=== PATIENT | male | born 1955 | race African-American/Black ===

== ENCOUNTER 2018-01-20 06:47 | Emergency (ER) | payer OTHER ==
[2018-01-20] MEDS ORDERED: IPRATROPIUM/ALBUTEROL 0.5-2.5 MG/3 ML AMPUL NEB ONE (07:26)
--- NOTE | 2018-01-20 07:31 | ER Document Report ---
ED Respiratory Problem - General Chief Complaint: Cough Stated Complaint: COLD SYMPTOMS Time Seen by Provider: 01/20/18 07:08 Mode of Arrival: Ambulatory Information source: Patient Notes: 62-year-old smoker has had persistent course mucousy cough for 3 weeks. No hemoptysis. He saw early Joe and was given antibiotics and other shots and went to [place] but he is now returned to [place] with a cough. His states she wants him to be seen and rechecked. No fever. History of hypertension and asthma. He has a metered-dose inhaler but is not using it. Denies chest pain or shortness of breath. - Related Data Allergies/Adverse Reactions: No Known Allergies Allergy (Verified 01/20/18 07:25) Past Medical History - General Information source: Patient - Social History Smoking Status: Current Every Day Smoker Frequency of alcohol use: None Drug Abuse: None Lives with: Family Family History: Reviewed & Not Pertinent Review of Systems - Review of Systems Constitutional: No symptoms reported EENT: See HPI Cardiovascular: No symptoms reported Respiratory: See HPI Gastrointestinal: No symptoms reported Genitourinary: No symptoms reported Male Genitourinary: No symptoms reported Musculoskeletal: No symptoms reported Skin: No symptoms reported Hematologic/Lymphatic: No symptoms reported Neurological/Psychological: No symptoms reported Physical Exam - Vital signs Vitals: Temp Pulse Resp BP Pulse Ox 97.9 F 65 18 130/82 H 99 01/20/18 06:55 01/20/18 06:55 01/20/18 06:55 01/20/18 06:55 01/20/18 06:55 Interpretation: Normal - General General appearance: Appears well, Alert - HEENT Head: Normocephalic, Atraumatic Eyes: Normal Conjunctiva: Normal Pupils: PERRL Tympanic membrane: Normal Nasal: Clear rhinorrhea Mouth/Lips: Normal Mucous membranes: Normal Neck: Supple. No: Lymphadenopathy - Respiratory Respiratory status: No respiratory distress Chest status: Nontender Breath sounds: Productive cough - mucousy Chest palpation: Normal - Cardiovascular Rhythm: Regular Heart sounds: Normal auscultation Murmur: No - Abdominal Inspection: Normal Distension: No distension Bowel sounds: Normal Tenderness: Nontender. No: Tender Organomegaly: No organomegaly - Back Back: Normal, Nontender - Extremities General upper extremity: Normal inspection, Nontender, Normal color, Normal ROM , Normal temperature General lower extremity: Normal inspection, Nontender, Normal color, Normal ROM , Normal temperature, Normal weight bearing. No: Lulú's sign - Neurological Neuro grossly intact: Yes Cognition: Normal Orientation: AAOx4 Jossy Coma Scale Eye Opening: Spontaneous Jossy Coma Scale Verbal: Oriented [place] Coma Scale Motor: Obeys Commands [place] Coma Scale Total: 15 Speech: Normal Motor strength normal: LUE, RUE, LLE, RLE Sensory: Normal - Psychological Associated symptoms: Normal affect, Normal mood - Skin Skin Temperature: Warm Skin Moisture: Dry Skin Color: Normal Skin irregularity: negative: Rash Course - Re-evaluation Re-evalutation: 01/20/18 09:11 Chest x-ray is negative but I spoke to the patient at length that if he continues with his chronic cough he has not had to see a turbine assembler for a bronchoscopy to evaluate his upper airway. Encouraged him to quit smoking and use the albuterol, prednisone, Tessalon Perles for the cough. - Vital Signs Vital signs: Temp Pulse Resp BP Pulse Ox 97.9 F 65 18 130/82 H 99 01/20/18 06:55 01/20/18 06:55 01/20/18 06:55 01/20/18 06:55 01/20/18 06:55 Discharge - Discharge Clinical Impression: Cough, Bronchitis Condition: Good Disposition: HOME, SELF-CARE Instructions: Stop Smoking ([facility]), Bronchitis ([facility]), Inhaled Bronchodilators ( [facility]), Steroid Medication Additional Instructions: Stop smoking See your doctor for follow-up because of this cost persists he may need a pulmonology referral Chest x-ray is negative Use the albuterol metered-dose inhaler 2 puffs every 3-4 hours for this cough Prednisone for a few days Return to the emergency room for any chest pain shortness of breath fever chills coughing up blood Prescriptions: Albuterol Sulfate [Proair HFA Inhalation Aerosol 8.5 gm MDI] 2 puff IH Q3HP PRN #1 hfa.aer.ad PRN Reason: Benzonatate [Tessalon Perles 100 mg Capsule] 100 mg PO ASDIR PRN #40 capsule PRN Reason: Prednisone [Deltasone 10 mg Tablet] 10 mg PO ASDIR PRN #21 tablet PRN Reason: Referrals: JAI HICKS MD [Primary Care Provider] - Follow up as needed PADMINI MONSALVE MD [ACTIVE STAFF] - Follow up as needed
--- NOTE | 2018-01-20 08:24 | RADIOLOGY REPORT (SQ) ---
EXAM DESCRIPTION: CHEST 2 VIEWS COMPLETED DATE/TIME: 01/20/2018 8:14 am REASON FOR STUDY: cough for 3 weeks COMPARISON: 10/06/2009 EXAM PARAMETERS: NUMBER OF VIEWS: two views TECHNIQUE: Digital Frontal and Lateral radiographic views of the chest acquired. RADIATION DOSE: NA LIMITATIONS: none FINDINGS: LUNGS AND PLEURA: Underlying emphysema with stable areas of scarring. No new opacities, m asses or pneumothorax. No pleural effusion. MEDIASTINUM AND HILAR STRUCTURES: No masses or contour abnormalities. HEART AND VASCULAR STRUCTURES: Heart normal size. No evidence for failure. BONES: No acute findings. HARDWARE: None in the chest. OTHER: No other significant finding. IMPRESSION: NO ACUTE RADIOGRAPHIC FINDING IN THE CHEST. NO SIGNIFICANT CHANGE FROM PRIOR STUDY. TECHNICAL DOCUMENTATION: JOB ID: [id number] [employer]- All Rights Reserved Reading location - IP/workstation name: [email or web address]
[2018-01-20 09:18] VITALS: BP 117/66
== END 2018-01-20 09:17 | disposition home or self-care (01) ==
LOC: ER 06:47
DX: J45.909 Unspecified asthma, uncomplicated (principal); R05 Cough; I10 Essential (primary) hypertension; J34.89 Other specified disorders of nose and nasal sinuses; F17.200 Nicotine dependence, unspecified, uncomplicated
CPT/HCPCS: 94640; 99283; 71046; J7620

== ENCOUNTER 2019-05-14 03:53 | Emergency (ER) | payer OTHER ==
--- NOTE | 2019-05-14 04:37 | ER Document Report ---
ED General - General Chief Complaint: Congestion Stated Complaint: SORE THROAT,CONGESTION Time Seen by Provider: 05/14/19 04:36 Primary Care Provider: JAI HICKS MD [ACTIVE STAFF] - Follow up as needed Mode of Arrival: Ambulatory Information source: Patient Notes: HISTORY OF PRESENT ILLNESS: Patient is a 64-year-old male with a past medical history of smoking and hypertension who presents with 2 days of progressively worsening congestion with nonproductive cough and sore throat. Patient denies fevers, no known sick contacts. He states that he is "cutting back on the smoking," and denies chest pain or swelling of the extremities. Location: Chest Onset: 2 days ago Provocation: None Quality: Congestion Radiation: None Severity: Mild Timing: Constant Known sick contacts: Unknown Associated symptoms: Has fevers or chills, no chest pain, no swelling of the extremities Home treatment: Robitussin REVIEW OF SYSTEMS: CONSTITUTIONAL : Denies fever or chills, no sweats. Denies recent illness. EENT: Denies eye, ear, throat, or mouth pain or symptoms. Positive for sinus congestion. CARDIOVASCULAR: Denies chest pain. RESPIRATORY: Positive for cough and chest congestion. Denies shortness of breath, difficulty breathing, or wheezing. GASTROINTESTINAL: Denies abdominal pain. Denies nausea, vomiting, or diarrhea. Denies constipation. GENITOURINARY: Denies difficulty urinating, painful urination, burning, frequency, or blood in urine. MUSCULOSKELETAL: Denies body aches. Denies neck or back pain or joint pain or swelling. SKIN: Denies rash or skin lesions. HEMATOLOGIC : Denies easy bruising or bleeding. LYMPHATIC: Denies swollen, enlarged glands. NEUROLOGICAL: Denies altered mental status or loss of consciousness. Denies headache. Denies weakness or paralysis or loss of use of either side. Denies problems with gait or speech. Denies sensory or motor loss. PSYCHIATRIC: Denies anxiety or stress or depression. All other systems reviewed and negative. PHYSICAL EXAMINATION: GENERAL: Well-appearing, well-nourished and in no acute distress. HEAD: Atraumatic, normocephalic. No scalp deformity, depression, or crepitance. EYES: Pupils are 3 mm and equal/round/reactive to light, extraocular movements intact, sclera anicteric, conjunctiva are normal. ENT: Nares patent bilaterally, oropharynx clear without exudates or palatal petechia. Moist mucous membranes. No tonsil hypertrophy. NECK: Normal range of motion, supple without lymphadenopathy. LUNGS: Breath sounds present, equal, and clear to auscultation bilaterally. No wheezes, rales, or rhonchi. HEART: Regular rate and rhythm without murmurs, rubs, or gallops. 2+ peripheral pulses. Normal capillary refill. ABDOMEN: Soft, nontender, nondistended. Normoactive bowel sounds. No guarding, no rebound. No masses appreciated. BACK: Normal contour, no midline tenderness. Rectal exam deferred. GENITAL/PELVC: Deferred. EXTREMITIES: Normal range of motion, no pitting or edema. No cyanosis. NEUROLOGICAL: No focal neurological deficits. Moves all extremities spontaneously and on command. PSYCH: Normal mood, normal affect. No suicidal thoughts/ideations. No ho micidal thoughts/ideations. No hallucinations. SKIN: Warm, dry, normal turgor, no rashes or lesions noted. ASSESSMENT AND PLAN: This patient is a 64-year-old male who presents with cough and congestion suggestive of viral etiology versus bronchitis. 1. Will give intramuscular Decadron and discharge. 2. Will discharge the patient home with strict return precautions and follow-up with primary care. All results were explained to and discussed with the patient, and all questions addressed and answered. The patient voices both understanding and agreeing with the plan. TRAVEL OUTSIDE OF THE [place] IN LAST 30 DAYS: No - HPI Onset: Other - 2 days ago Onset/Duration: Gradual Quality of pain: No pain Severity: Mild Pain Level: Denies Associated symptoms: Nonproductive cough, Sinus pain/drainage, Sore throat Exacerbated by: Denies Relieved by: Denies Similar symptoms previously: No Recently seen / treated by doctor: No - Related Data Allergies/Adverse Reactions: No Known Allergies Allergy (Verified 01/20/18 07:25) Past Medical History - General Information source: Patient - Social History Smoking Status: Current Every Day Smoker Chew tobacco use (# tins/day): No Frequency of alcohol use: None Drug Abuse: None Lives with: Family Family History: Reviewed & Not Pertinent Patient has suicidal ideation: No Patient has homicidal ideation: No - Past Medical History Cardiac Medical History: Reports: Hx Hypertension Pulmonary Medical History: Reports: Hx Asthma EENT Medical History: Reports: None Neurological Medical History: Reports: None Endocrine Medical History: Reports: None Renal/ Medical History: Reports: None. Denies: Hx Peritoneal Dialysis Malignancy Medical History: Reports None GI Medical History: Reports: None Musculoskeletal Medical History: Reports None Skin Medical History: Reports None Psychiatric Medical History: Reports: None Traumatic Medical History: Reports: None Infectious Medical History: Reports: None Surgical Hx: Negative Past Surgical History: Reports: None - Immunizations Immunizations up to date: Yes Hx Diphtheria, Pertussis, Tetanus Vaccination: Yes Review of Systems - Review of Systems Constitutional: No symptoms reported EENT: See HPI, Nose congestion, Throat pain Cardiovascular: No symptoms reported Respiratory: See HPI, Cough Gastrointestinal: No symptoms reported Genitourinary: No symptoms reported Male Genitourinary: No symptoms reported Musculoskeletal: No symptoms reported Skin: No symptoms reported Hematologic/Lymphatic: No symptoms reported Neurological/Psychological: No symptoms reported -: Yes All other systems reviewed and negative Physical Exam - Vital signs Vitals: Temp Pulse Resp BP Pulse Ox 97.4 F 86 18 122/67 99 05/14/19 03:58 05/14/19 03:58 05/14/19 03:58 05/14/19 03:58 05/14/19 03:58 Interpretation: Normal Course - Vital Signs Vital signs: Temp Pulse Resp BP Pulse Ox 97.4 F 86 18 122/67 99 05/14/19 03:58 05/14/19 03:58 05/14/19 03:58 05/14/19 03:58 05/14/19 03:58 Discharge - Discharge Clinical Impression: Viral syndrome Condition: Good Disposition: HOME, SELF-CARE Instructions: Viral Syndrome ([facility]) Additional Instructions: You have been evaluated in the Emergency Department for cough and congestion but most likely is from a virus. While here, you were given medications and it is now safe to be discharged home. Please follow-up with your primary physician as instructed in one week to be rechecked. Return to the Emergency Department if you experience worsening cough, high fevers, chest pain, difficulty breathing, or any other concerning symptoms. Prescriptions: Codeine Phosphate/Guaifenesin [Cheratussin Ac Syrup] 10 ml PO Q6HP PRN 7 Days #280 liquid PRN Reason: Cough Azithromycin [Zithromax 250 mg Tablet] 250 mg PO ASDIR PRN #6 tablet PRN Reason: Referrals: JAI HICKS MD [ACTIVE STAFF] - Follow up as needed Print Language: Japanese
[2019-05-14] MEDS ORDERED: DEXAMETHASONE SOD PHOS INJ 10 MG/1 ML VIAL IM ONE (04:45)
[2019-05-14 05:30] VITALS: BP 134/75
== END 2019-05-14 05:00 | disposition home or self-care (01) ==
LOC: ER 03:53
DX: B34.9 Viral infection, unspecified (principal); J02.9 Acute pharyngitis, unspecified; R05 Cough; R09.81 Nasal congestion; J34.89 Other specified disorders of nose and nasal sinuses; J45.909 Unspecified asthma, uncomplicated; I10 Essential (primary) hypertension; F17.200 Nicotine dependence, unspecified, uncomplicated
CPT/HCPCS: 99282; 96372; J1100

== ENCOUNTER 2020-09-06 10:08 | Emergency (ER) | payer OTHER, MEDICARE ==
--- NOTE | 2020-09-06 11:10 | RADIOLOGY REPORT (SQ) ---
EXAM DESCRIPTION: CHEST SINGLE VIEW IMAGES COMPLETED DATE/TIME: 09/06/2020 10:54 am REASON FOR STUDY: shortness of breath COMPARISON: 2017, 2009 EXAM PARAMETERS: NUMBER OF VIEWS: One view. TECHNIQUE: Single frontal radiographic view of the chest acquired. RADIATION DOSE: NA LIMITATIONS: None. FINDINGS: LUNGS AND PLEURA: Upper lobes are hyperlucent from obstructive lung disease. No acute infiltrates. No pleural effusion or pneumothorax. MEDIASTINUM AND HILAR STRUCTURES: No masses. Contour normal. HEART AND VASCULAR STRUCTURES: Heart normal in size. Normal vasculature. BONES: No acute findings. HARDWARE: None in the chest. OTHER: No other significant finding. IMPRESSION: Obstructive lung disease. No focal infiltrates. TECHNICAL DOCUMENTATION: JOB ID: [id number] [employer]- All Rights Reserved Reading location - IP/workstation name: [email or web address]
--- NOTE | 2020-09-06 11:52 | ER Document Report ---
ED Respiratory Problem - General Chief Complaint: Cough Stated Complaint: CONGESTION, SORE THROAT Time Seen by Provider: 09/06/20 10:43 Primary Care Provider: [facility] [Primary Care Provider] - Follow up as needed TRAVEL OUTSIDE OF THE [place] IN LAST 30 DAYS: No - HPI Notes: 65-year-old male presents to ED for evaluation of cough for 5 days. Patient reports a yellow sputum production. Denies ear pain and sore throat. Denies changes in pain with deep inspiration or ROM. Denies fevers, chills, nausea, vomiting, SOB, low back pain, pain with urination, diarrhea, constipation, or abdominal pain. Denies other complaints. Patient reports history of asthma. Denies history of COPD. Notes that he is a daily smoker. Patient has had bronchitis in the past. - Related Data Allergies/Adverse Reactions: No Known Allergies Allergy (Verified 09/06/20 10:33) Home Medications: lisinopril. amlodipine. valsartan/hctz Past Medical History - Social History Smoking Status: Current Some Day Smoker Chew tobacco use (# tins/day): No Frequency of alcohol use: None Drug Abuse: None Family History: Reviewed & Not Pertinent - Past Medical History Cardiac Medical History: Reports: Hx Hypertension Pulmonary Medical History: Reports: Hx Asthma Renal/ Medical History: Denies: Hx Peritoneal Dialysis - Immunizations Immunizations up to date: Yes Hx Diphtheria, Pertussis, Tetanus Vaccination: Yes Review of Systems - Review of Systems Notes: CONSTITUTIONAL: No fever, fatigue or weight loss. SKIN: No rash. HENT: No congestion, ear pain, or sore throat. EYES: No recent vision problems or eye pain. ENDOCRINE: No thyroid problems. No polyuria or polydipsia. CARDIOVASCULAR: No chest pain or edema. RESPIRATORY: + cough no shortness of breath, congestion, + wheezing. GASTROINTESTINAL: No abdominal pain, nausea, vomiting, bloody stools or diarrhea. GENITOURINARY: No dysuria. MUSCULOSKELETAL: No joint pain or swelling. LYMPHATIC: No swollen glands. NEUROLOGIC: No seizures. No headache, focal weakness or sensory changes. HEMATOLOGIC: No unusual bruising or bleeding. PSYCHIATRIC: No depression or anxiety. Physical Exam - Vital signs Vitals: Temp Pulse Resp BP Pulse Ox 97.3 F 83 18 145/72 H 99 09/06/20 10:13 09/06/20 10:09/06/20 10:09/06/20 10:09/06/20 10:13 General: No acute distress. Alert and oriented x3. Sitting comfortably in a stretcher. Skin: Intact without any jaundice, pallor, or erythema. Warm and dry. HEENT: Normocephalic, atraumatic. Pupils are equal round reactive to light and accommodation. Extraocular movements are intact. TMs without erythema or bulging. Canals are clear. Nares patent without any discharge. No frontal or maxillary sinus tenderness. Teeth in good condition. Pharynx without erythema, edema, or exudates. No tonsillar enlargement. Uvula is midline. Airway is patent. Neck: Supple with no lymphadenopathy. Full range of motion. Heart: Regular rate and rhythm. S1,S2. No murmurs, rubs, or gallops. Lungs: Scattered upper lobe wheezing without rhonchi, rales. Equal chest expansion. No retractions. Abdomen: Soft, nontender to palpation, nondistended. Positive bowel sounds in all 4 quadrants. No hepatosplenomegaly. No masses. No CVA tenderness bilaterally. Neuro: GCS 15. Moving all extremities without discomfort. Psych: Mood and affect appropriate. Course - Re-evaluation Re-evalutation: 09/06/20 11:56 65-year-old male presents to ED for evaluation of cough starting 5 days ago. Patient notes a productive sputum. On auscultation, patient is found to have scattered wheezing. Chest x-ray was negative for acute cardiopulmonary pathology including pneumonia, effusions, or congestion. Patient does have hypoventalatory changes concerning for COPD. Patient advised of the findings. Patient is most likely experiencing acute bronchitis with URI verses pneumonia. Patient treated symptomatically with steroids, albuterol, and azithromycin. Patient noted improvement in symptoms. Patient will be continued on the same for outpatiet management. Instructed to follow up with primary care physician. Patient understands indications to return to the ER. Patient is agreeable with this plan. - Vital Signs Vital signs: Temp Pulse Resp BP Pulse Ox 97.3 F 83 18 145/72 H 99 09/06/20 10:09/06/20 10:09/06/20 10:09/06/20 10:09/06/20 10:13 - Laboratory Results Critical Laboratory Results Reviewed: No Critical Results - Radiology Results Critical Radiology Results Reviewed: No Critical Results Discharge - Discharge Clinical Impression: Acute bronchitis Qualifiers: Bronchitis organism: other organism Qualified Code(s): J20.8 - Acute bronchitis due to other specified organisms Condition: Stable Disposition: HOME, SELF-CARE Instructions: Bronchitis ([facility]) Prescriptions: Prednisone [Deltasone 20 mg Tablet] 2 tab PO DAILY 5 Days #10 tablet Albuterol Sulfate [Proair HFA Inhalation Aerosol 8.5 gm MDI] 2 puff IH Q4H PRN #1 mdi PRN Reason: Azithromycin [Zithromax 250 mg Tablet] 250 mg PO ASDIR PRN #6 tablet PRN Reason: Forms: Return to Work [facility]errals: [facility] [Primary Care Provider] - Follow up as needed
[2020-09-06 12:09] VITALS: BP 144/82
== END 2020-09-06 12:08 | disposition home or self-care (01) ==
LOC: ER 10:08
DX: J44.0 Chronic obstructive pulmonary disease with (acute) lower respiratory infection (principal); J20.9 Acute bronchitis, unspecified; R05 Cough; F17.200 Nicotine dependence, unspecified, uncomplicated; I10 Essential (primary) hypertension; Z79.899 Other long term (current) drug therapy
CPT/HCPCS: 71045; 99283